=== PATIENT | female | born 1965 | race Caucasian/White ===

== ENCOUNTER 2016-11-25 12:25 | Emergency (ER) | payer OTHER ==
[~2016-11-25] VITALS: Ht 167.6 cm; Wt 55.0 kg
[~2016-11-25 12:25] MED LIST: AMLO5TAB2 PO; HYDR-3533 PO; LOPE2CAP PO; ZOFR4TAB3 SL
[2016-11-25 12:27] VITALS: BP 135/87; PULSE 98; RESP 20; TEMP 98.4; O2SAT 93
[2016-11-25] MEDS ORDERED: PRIL20CA9 PO (13:14)
[2016-11-25] MEDS ORDERED: LORA-392 PO (13:14)
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
[2016-11-25] MEDS ORDERED: CYCL1TAB29 PO (15:52)
[2016-11-25] MEDS ORDERED: NAPR500 PO (15:52)
== END 2016-11-25 20:35 | disposition home or self-care (01) ==
LOC: NEPB 12:25
DX: S16.1XXA Strain of muscle, fascia and tendon at neck level, initial encounter (principal); M79.622 Pain in left upper arm; I10 Essential (primary) hypertension; V43.62XA Car passenger injured in collision with other type car in traffic accident, initial encounter
CPT/HCPCS: 72050; 73060; 99284

== ENCOUNTER 2016-11-25 23:40 | Emergency (ER) | payer OTHER ==
[~2016-11-25] VITALS: Ht 167.6 cm; Wt 65.0 kg
[~2016-11-25 23:40] MED LIST changes: +CYCL1TAB29 PO; +LORA-392 PO; +NAPR500 PO; +PRIL20CA9 PO
[2016-11-25 23:42] VITALS: BP 212/104; PULSE 120; TEMP 97.5; O2SAT 98
[2016-11-26] MEDS ORDERED: oxyCODONE/ACETAMINOPHEN 5 MG/325 MG TAB PO ONE
[2016-11-26] MEDS ORDERED: DIAZEPAM 5 MG TAB PO ONE
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
== END 2016-11-26 00:25 | disposition left against medical advice (07) ==
LOC: NEPE 23:40
DX: S13.4XXA Sprain of ligaments of cervical spine, initial encounter (principal); I10 Essential (primary) hypertension; W19.XXXA Unspecified fall, initial encounter
CPT/HCPCS: 99283

== ENCOUNTER 2017-11-07 05:30 | Emergency (ER) | payer SELFPAY ==
[~2017-11-07] VITALS: Ht 167.6 cm; Wt 65.0 kg
[~2017-11-07 05:30] MED LIST changes: +CYCL10TA PO; -CYCL1TAB29 PO; -HYDR-3533 PO; -LOPE2CAP PO; -ZOFR4TAB3 SL
[2017-11-07 05:33] VITALS: BP 197/107; PULSE 108; RESP 18; TEMP 98.5; O2SAT 95
[2017-11-07] MEDS ORDERED: PRIL20TA2 (05:51)
[2017-11-07 06:14] VITALS: O2SAT 100
[2017-11-07 06:33] LABS: AUTOMATED NEUTROPHIL # 4.8 TH/MM3 (1.8-7.7); BASOPHIL # 0.1 TH/MM3 (0-0.2); BASOPHIL % 0.7 % (0.0-2.0); EOSINOPHIL # 0.4 TH/MM3 (0-0.4); EOSINOPHIL % 3.8 % (0.0-4.0); HEMATOCRIT 45.1 % (35.0-46.0); HEMOGLOBIN 15.6 GM/DL (11.6-15.3); LYMPH % 36.9 % (9.0-44.0); LYMPHOCYTE # 3.5 TH/MM3 (1.0-4.8); MEAN CELL VOLUME 101.7 FL (80.0-100.0); MEAN CORPUSCULAR HEMOGLOBIN 35.3 PG (27.0-34.0); MEAN CORPUSCULAR HGB CONC 34.7 % (32.0-36.0); MEAN PLATELET VOLUME 9.4 FL (7.0-11.0); MONOCYTE # 0.7 TH/MM3 (0-0.9); NEUT % 51.6 % (16.0-70.0); PLATELET COUNT 202 TH/MM3 (150-450); RED BLOOD COUNT 4.43 MIL/MM3 (4.00-5.30); RED CELL DISTRIBUTION WIDTH 13.7 % (11.6-17.2); WHITE BLOOD COUNT 9.4 TH/MM3 (4.0-11.0)
[2017-11-07] MEDS ORDERED: MORPHINE SULFATE 8 MG/ML INJ IV PUSH ONE ×2 (06:45→08:45)
[2017-11-07] MEDS ORDERED: SODIUM CHLOR 0.9% 1000 ML INJ 1,000 ML IV SCH (06:45)
[2017-11-07] MEDS ORDERED: DICYCLOMINE HCL 20 MG/2 ML VIAL IM ONE (06:45)
[2017-11-07] MEDS ORDERED: ONDANSETRON HCL 4 MG/2 ML VIAL IV PUSH ONE (06:45)
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
[2017-11-07 06:56] LABS: ALBUMIN 4.2 GM/DL (3.4-5.0); ALKALINE PHOSPHATASE 106 U/L (45-117); ALT (GPT) 112 U/L (10-53); AST (GOT) 162 U/L (15-37); BICARBONATE 21.2 MEQ/L (21.0-32.0); BLOOD UREA NITROGEN 10 MG/DL (7-18); CHLORIDE 105 MEQ/L (98-107); CREATININE 0.54 MG/DL (0.50-1.00); GLOMERULAR FILTRATION RATE 118 ML/MIN (>89); GLUCOSE,RANDOM 108 MG/DL (74-106); LIPASE 156 U/L (73-393); SODIUM (NA) 137 MEQ/L (136-145); TOTAL BILIRUBIN ADULT 0.4 MG/DL (0.2-1.0); TOTAL PROTEIN 8.3 GM/DL (6.4-8.2)
[2017-11-07] MEDS ORDERED: MORPHINE SULFATE 4 MG/ML INJ IV PUSH ONE (08:15)
[2017-11-07] MEDS ORDERED: ACETAMINOPHEN 500 MG CPLT PO ONE (08:15)
[2017-11-07] MEDS ORDERED: LORazepam 2 MG/ML VIAL IV PUSH ONE (08:15)
[2017-11-07 08:27] LABS: BILIRUBIN, URINE NEG (NEG); BLOOD, URINE NEG (NEG); GLUCOSE,URINE NEG (NEG); KETONE, URINE TRACE mg/dL (NEG); NITRITE,URINE NEG (NEG); PH, URINE 5.5 (5.0-8.5); URINE COLOR YELLOW (YELLW/STRAW); URINE LEUKOCYTE ESTERASE SMALL (NEG)
[2017-11-07 08:36] LABS: BACTERIA, URINE RARE /hpf; MUCUS URINE FEW /lpf (OCC); RBC, URINE 0-3 /hpf (0-3); SQUAMOUS EPITHELIAL CELL URINE > 8 /hpf (0-5)
[2017-11-07 08:40] VITALS: PULSE 76; RESP 18; O2SAT 97
[2017-11-07] MEDS ORDERED: IOHEXOL 350 MG/ML 10 ML VIAL (for RAD DIAG) IVCONTRAST ONE (08:56)
--- NOTE | 2017-11-07 09:19 | RADRPT ---
EXAM DATE/TIME: 11/07/2017 08:46 [facility] COMPARISON: CT ABDOMEN & PELVIS W CONTRAST, November 13, 2016, 14:01. INDICATIONS : Generalized abdominal pain. IV CONTRAST: 94 cc Omnipaque 350 (iohexol) IV ORAL CONTRAST: No oral contrast ingested. RADIATION DOSE: 5.01 CTDIvol (mGy) MEDICAL HISTORY : Hypertension. Cervical cancer SURGICAL HISTORY : Appendectomy. Cholecystectomy.Hysterectomy. ENCOUNTER: Initial ACUITY: 4 - 6 days PAIN SCALE: 5/10 LOCATION: Bilateral abdomen TECHNIQUE: Volumetric scanning of the abdomen and pelvis was performed. Using automated exposure control and ad justment of the mA and/or kV according to patient size, radiation dose was kept as low as reasonably achievable to obtain optimal diagnostic quality images. DICOM format image data is available electro nically for review and comparison. FINDINGS: The lung base is are clear. Mild fatty replacement is present in the liver. Surgical clips gallbladder fossa Spleen and pancreas unremarkable Adrenal glands appear normal Symmetric renal function renal stones No ascites or adenopathy There are no inflammatory changes in the abdomen Pelvic contents unremarkable Bowel gas pattern is unremarkable. I do not see air-fluid levels, dilatation or evidence for colitis . Surgical clip is present in region the appendix. Review of bone windows reveals mild degenerative changes in the lumbar spine. CONCLUSION: 1. Negative for acute process 2. I do not see an etiology for patient's abdominal pain. Bennie Bryant MD FACR on November 07, 2017 at 9:11 Board Certified Radiologist. This report was verified electronically.
[2017-11-07 10:21] VITALS: BP 115/52; PULSE 74; RESP 16; O2SAT 93
[2017-11-07] MEDS ORDERED: DICY10 PO (10:21)
[2017-11-07] MEDS ORDERED: ZOFR4TAB3 SL (10:21)
--- NOTE | 2017-11-07 10:21 | PD ---
Data Data Last Documented VS Vital Signs Date Time Temp Pulse Resp B/P (MAP) Pulse Ox O2 Delivery O2 Flow Rate FiO2 11/07/17 08:40 76 18 97 11/07/17 06:14 Room Air 11/07/17 05:33 98.5 Orders Orders Complete Blood Count With Diff (11/07/17 05:59) Comprehensive Metabolic Panel (11/07/17 05:59) Urinalysis - C+S If Indicated (11/07/17 05:59) Iv Access Insert/Monitor (11/07/17 05:59) Oxygen Administration (11/07/17 05:59) Oximetry (11/07/17 05:59) Lipase (11/07/17 05:59) Morphine Inj (Morphine Inj) (11/07/17 06:45) Ondansetron Inj (Zofran Inj) (11/07/17 06:45) Sodium Chlor 0.9% 1000 Ml Inj (Ns 1000 M (11/07/17 06:45) Dicyclomine Inj (Bentyl Inj) (11/07/17 06:45) Acetaminophen (Tylenol) (11/07/17 08:15) Morphine Inj (Morphine Inj) (11/07/17 08:15) Lorazepam Inj (Ativan Inj) (11/07/17 08:15) Ct Abd/Pel W Iv Contrast(Rout) (11/07/17 ) Morphine Inj (Morphine Inj) (11/07/17 08:45) Urine Culture (11/07/17 07:52) Iohexol 350 Inj (Omnipaque 350 Inj) (11/07/17 08:56) Labs Laboratory Tests Test 11/07/17 06:00 11/07/17 07:52 White Blood Count 9.4 TH/MM3 Red Blood Count 4.43 MIL/MM3 Hemoglobin 15.6 GM/DL Hematocrit 45.1 % Mean Corpuscular Volume 101.7 FL Mean Corpuscular Hemoglobin 35.3 PG Mean Corpuscular Hemoglobin Concent 34.7 % Red Cell Distribution Width 13.7 % Platelet Count 202 TH/MM3 Mean Platelet Volume 9.4 FL Neutrophils (%) (Auto) 51.6 % Lymphocytes (%) (Auto) 36.9 % Monocytes (%) (Auto) 7.0 % Eosinophils (%) (Auto) 3.8 % Basophils (%) (Auto) 0.7 % Neutrophils # (Auto) 4.8 TH/MM3 Lymphocytes # (Auto) 3.5 TH/MM3 Monocytes # (Auto) 0.7 TH/MM3 Eosinophils # (Auto) 0.4 TH/MM3 Basophils # (Auto) 0.1 TH/MM3 CBC Comment DIFF FINAL Differential Comment Blood Urea Nitrogen 10 MG/DL Creatinine 0.54 MG/DL Random Glucose 108 MG/DL Total Protein 8.3 GM/DL Albumin 4.2 GM/DL Calcium Level 9.0 MG/DL Alkaline Phosphatase 106 U/L Aspartate Amino Transf (AST/SGOT) 162 U/L Alanine Aminotransferase (ALT/SGPT) 112 U/L Total Bilirubin 0.4 MG/DL Sodium Level 137 MEQ/L Potassium Level 3.7 MEQ/L Chloride Level 105 MEQ/L Carbon Dioxide Level 21.2 MEQ/L Anion Gap 11 MEQ/L Estimat Glomerular Filtration Rate 118 ML/MIN Lipase 156 U/L Urine Color YELLOW Urine Turbidity CLEAR Urine pH 5.5 Urine Specific [place] 1.016 Urine Protein NEG mg/dL Urine Glucose (UA) NEG mg/dL Urine Ketones TRACE mg/dL Urine Occult Blood NEG Urine Nitrite NEG Urine Bilirubin NEG Urine Urobilinogen LESS THAN 2.0 MG/DL Urine Leukocyte Esterase SMALL Urine RBC 0-3 /hpf Urine WBC 6-8 /hpf Urine Squamous Epithelial Cells > 8 /hpf Urine Bacteria RARE /hpf Urine Mucus FEW /lpf Microscopic Urinalysis Comment CULTURE INDICATED MDM Supervised Visit with NICOLE: No Narrative Course I took over care of this patient from Dr. Salinas. She reports that over the past several days she's had 2 nails which have been greasy and she developed abdominal pain, vomiting and some loose stools. Labs are reassuring with the exception of some transaminitis and neck are sided ptosis which is likely secondary to chronic alcohol abuse. I discussed this with the patient and counseled her to stop drinking. CT abdomen and pelvis is reassuring. Patient was given pain control and antiemetics and she feels much better. I suspect she has gastroenteritis. Patient will be discharged home. Diagnosis Primary Impression: Nausea vomiting and diarrhea Patient Instructions: General Instructions Additional Instruction: If you develop lightheadedness, dizziness, persistent vomiting, inability to eat , or severe abdominal pain return to the emergency department. Followup with your primary care physician in 2-3 days if your symptoms have not resolved. Wash your hands agressively after using the restroom as to not spread your illness to others. Do not return to work until your symptoms have resolved. Take Zofran as needed for nausea. Med/Other Pt SpecificInfo: Prescription(s) given Scripts Dicyclomine (Bentyl) 10 Mg Cap 10 MG PO QID Y for CRAMPS, #15 CAP 0 Refills Prov: Geno Crowe MD 11/07/17 Ondansetron Odt (Zofran Odt) 4 Mg Tab 4 MG SL Q6HR Y for Nausea/Vomiting, #15 TAB 0 Refills Prov: Geno Crowe MD 11/07/17 Disposition: 01 DISCHARGE HOME Condition: Stable Geon Crowe MD Nov 07, 2017 10:21
== END 2017-11-07 11:00 | disposition home or self-care (01) ==
LOC: NEPC 05:30
DX: R11.2 Nausea with vomiting, unspecified (principal); R19.7 Diarrhea, unspecified; R82.90 Unspecified abnormal findings in urine; I10 Essential (primary) hypertension; Z72.0 Tobacco use; Z72.89 Other problems related to lifestyle
CPT/HCPCS: 74177; 80053; 81001; 83690; 85025; 87086; 96374; 96375; 96376; 99285; J0500; J2060; J2270; J2405; J7030; Q9967

== ENCOUNTER 2017-12-07 23:59 | Emergency (ER) | payer SELFPAY ==
[~2017-12-07] VITALS: Ht 167.6 cm; Wt 59.1 kg
[~2017-12-07 23:59] MED LIST changes: -CYCL10TA PO; +DICY10 PO; -PRIL20CA9 PO; +PRIL20TA2; +ZOFR4TAB3 SL
[2017-12-08] VITALS: BP 205/105; PULSE 105; RESP 18; TEMP 97.9; O2SAT 95
[2017-12-08 00:59] VITALS: BP 196/92; PULSE 94; RESP 20; TEMP 97.7; O2SAT 94
[2017-12-08] MEDS ORDERED: SODIUM CHLOR 0.9% 1000 ML INJ 1,000 ML IV ONE (01:15)
[2017-12-08] MEDS ORDERED: KETOROLAC TROMETHAMINE 30 MG/ML (IVP) VIAL IV PUSH ONE (01:15)
[2017-12-08 01:44] LABS: BASOPHIL % 0.3 % (0.0-2.0); EOSINOPHIL # 0.5 TH/MM3 (0-0.4); HEMOGLOBIN 15.1 GM/DL (11.6-15.3); LYMPH % 37.3 % (9.0-44.0); LYMPHOCYTE # 3.6 TH/MM3 (1.0-4.8); MEAN CELL VOLUME 101.1 FL (80.0-100.0); MEAN CORPUSCULAR HEMOGLOBIN 34.6 PG (27.0-34.0); MEAN CORPUSCULAR HGB CONC 34.2 % (32.0-36.0); MEAN PLATELET VOLUME 9.4 FL (7.0-11.0); MONO % 5.6 % (0.0-8.0); MONOCYTE # 0.5 TH/MM3 (0-0.9); NEUT % 51.8 % (16.0-70.0); PLATELET COUNT 246 TH/MM3 (150-450); RED BLOOD COUNT 4.35 MIL/MM3 (4.00-5.30); RED CELL DISTRIBUTION WIDTH 13.8 % (11.6-17.2); WHITE BLOOD COUNT 9.6 TH/MM3 (4.0-11.0)
--- NOTE | 2017-12-08 01:51 | RADRPT ---
EXAM DATE/TIME: 12/08/2017 01:18 [facility] COMPARISON: CHEST SINGLE AP, February 21, 2016, 3:35. INDICATIONS : Cough and cold symptoms x 3 weeks. MEDICAL HISTORY : Gastroesophageal reflux disease. Hypertension SURGICAL HISTORY : Appendectomy. Cholecystectomy. Hysterectomy. Bilateral shoulder surgery ENCOUNTER: Initial ACUITY: 3 weeks PAIN SCORE: 8/10 LOCATION: Bilateral chest FINDINGS: No new focal pleural pleural or parenchymal opacities. Cardiomediastinal contours are within normal l imits. Redemonstration bilateral humeral fixation hardware. Osseous structures are intact. CONCLUSION: 1. No acute abnormality or significant interval change. Pepe Blount MD on December 08, 2017 at 1:48 Board Certified Radiologist. This report was verified electronically.
[2017-12-08 02:18] VITALS: BP 92/51; PULSE 78; RESP 18; O2SAT 95
[2017-12-08 02:20] LABS: ALT (GPT) 89 U/L (10-53)
[2017-12-08 02:21] LABS: ALKALINE PHOSPHATASE 107 U/L (45-117); TOTAL BILIRUBIN ADULT 0.4 MG/DL (0.2-1.0); TOTAL PROTEIN 8.6 GM/DL (6.4-8.2)
[2017-12-08 02:22] LABS: ALBUMIN 4.1 GM/DL (3.4-5.0); AST (GOT) 136 U/L (15-37); BLOOD UREA NITROGEN 8 MG/DL (7-18); CALCIUM 9.5 MG/DL (8.5-10.1); CHLORIDE 101 MEQ/L (98-107); CREATININE 0.48 MG/DL (0.50-1.00); GLOMERULAR FILTRATION RATE 135 ML/MIN (>89); GLUCOSE,RANDOM 109 MG/DL (74-106); SODIUM (NA) 140 MEQ/L (136-145)
[2017-12-08 03:21] VITALS: BP 98/51; PULSE 77; RESP 18; O2SAT 95
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
[2017-12-08] MEDS ORDERED: GUAISYP4 PO (04:49)
[2017-12-08] MEDS ORDERED: IBUP-232 PO (04:49)
[2017-12-08] MEDS ORDERED: AZIT250T3 PO (04:49)
== END 2017-12-08 05:00 | disposition home or self-care (01) ==
LOC: NEPC 23:59
DX: B34.9 Viral infection, unspecified (principal); B97.89 Other viral agents as the cause of diseases classified elsewhere; I10 Essential (primary) hypertension; K21.9 Gastro-esophageal reflux disease without esophagitis; F32.9 Major depressive disorder, single episode, unspecified; F41.0 Panic disorder [episodic paroxysmal anxiety]; F17.210 Nicotine dependence, cigarettes, uncomplicated; Z85.41 Personal history of malignant neoplasm of cervix uteri; Z88.5 Allergy status to narcotic agent; Z79.899 Other long term (current) drug therapy
CPT/HCPCS: 71046; 80053; 85025; 87081; 87804; 87880; 96374; 99284; J1885; J7030

== ENCOUNTER 2017-12-14 01:21 | Emergency (ER) | payer SELFPAY ==
[~2017-12-14] VITALS: Ht 162.6 cm; Wt 65.0 kg
[~2017-12-14 01:21] MED LIST changes: +AZIT250T3 PO; +GUAISYP4 PO; +IBUP-232 PO
[2017-12-14 01:25] VITALS: BP 185/85; PULSE 120; RESP 14; TEMP 97.8; O2SAT 96
[2017-12-14] MEDS ORDERED: RESP: LIDOCAINE HCL 4% PF 5 ML NEB NEB ONE (01:45)
[2017-12-14] MEDS ORDERED: RESP: ALBUTEROL 2.5 MG/IPRATROPIUM 0.5 MG NEB (SCH) NEB ONE (01:45)
[2017-12-14] MEDS ORDERED: LIDOCAINE HCL 2% 20 ML VIAL INFIL ONE (02:00)
[2017-12-14] MEDS ORDERED: predniSONE 20 MG TAB PO ONE (02:30)
--- NOTE | 2017-12-14 02:41 | RADRPT ---
EXAM DATE/TIME: 12/14/2017 02:13 [facility] COMPARISON: CHEST SINGLE AP, February 21, 2016, 3:35. INDICATIONS : Patient complains of cough, congestion, and left sided chest pain. MEDICAL HISTORY : Gastroesophageal reflux disease. Hypertension. SURGICAL HISTORY : Appendectomy. Cholecystectomy. Hysterectomy. Bilateral shoulder surgery ENCOUNTER: Initial ACUITY: 1 month PAIN SCORE: 10/10 LOCATION: Left chest FINDINGS: A single view of the chest demonstrates the lungs to be symmetrically aerated without evidence of mas s, infiltrate or effusion. The cardiomediastinal contours are unremarkable. Osseous structures are intact. Surgical clips are seen in the humeri bilaterally. CONCLUSION: No acute disease. Clovis Armijo MD on December 14, 2017 at 2:38 Board Certified Radiologist. This report was verified electronically.
[2017-12-14 03:35] VITALS: BP 127/67; PULSE 88; RESP 20; O2SAT 96
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
[2017-12-14] MEDS ORDERED: ALBUTEROL SULFATE 90 MCG/ACT HFA 8 GM INHALER INH ONE (04:30)
[2017-12-14] MEDS ORDERED: GUAISYP4 PO (04:36)
== END 2017-12-14 04:30 | disposition home or self-care (01) ==
LOC: NEPE 01:21
DX: J40 Bronchitis, not specified as acute or chronic (principal); F32.9 Major depressive disorder, single episode, unspecified; I10 Essential (primary) hypertension; K21.9 Gastro-esophageal reflux disease without esophagitis; F41.0 Panic disorder [episodic paroxysmal anxiety]; F17.210 Nicotine dependence, cigarettes, uncomplicated; Z79.899 Other long term (current) drug therapy; Z88.5 Allergy status to narcotic agent; Z88.8 Allergy status to other drugs, medicaments and biological substances
CPT/HCPCS: 71045; 94640; 94664; 99283; J7512

== ENCOUNTER 2018-02-10 14:48 | Emergency (ER) | payer SELFPAY ==
[~2018-02-10] VITALS: Ht 167.6 cm; Wt 60.0 kg
[2018-02-10] MEDS ORDERED: IOHEXOL 350 MG/ML 10 ML VIAL (for RAD DIAG) IVCONTRAST ONE (14:49)
[2018-02-10 14:51] VITALS: BP 146/95; PULSE 102; RESP 18; TEMP 99.7; O2SAT 99
[2018-02-10 16:43] VITALS: BP 157/95; PULSE 103; RESP 18; O2SAT 96
[2018-02-10] MEDS ORDERED: SODIUM CHLOR 0.9% 1000 ML INJ 1,000 ML IV SCH (16:46)
[2018-02-10] MEDS ORDERED: DICYCLOMINE HCL 20 MG/2 ML VIAL IM ONE (17:00)
[2018-02-10] MEDS ORDERED: SODIUM CHLORIDE 0.9% FLUSH 10 ML FLUSH IV FLUSH PRN (17:00)
[2018-02-10] MEDS ORDERED: ONDANSETRON HCL 4 MG/2 ML VIAL IVP ONE (17:00)
[2018-02-10 17:05] VITALS: O2SAT 97
[2018-02-10 17:08] VITALS: BP 152/91; PULSE 89; RESP 16; O2SAT 97
[2018-02-10 17:13] LABS: AUTOMATED NEUTROPHIL # 12.7 TH/MM3 (1.8-7.7); BASOPHIL % 0.2 % (0.0-2.0); EOSINOPHIL % 0.1 % (0.0-4.0); HEMATOCRIT 45.5 % (35.0-46.0); HEMOGLOBIN 16.2 GM/DL (11.6-15.3); LYMPHOCYTE # 0.4 TH/MM3 (1.0-4.8); MEAN CELL VOLUME 100.9 FL (80.0-100.0); MEAN CORPUSCULAR HGB CONC 35.6 % (32.0-36.0); MEAN PLATELET VOLUME 9.7 FL (7.0-11.0); MONO % 4.7 % (0.0-8.0); MONOCYTE # 0.7 TH/MM3 (0-0.9); PLATELET COUNT 164 TH/MM3 (150-450); RED BLOOD COUNT 4.51 MIL/MM3 (4.00-5.30); RED CELL DISTRIBUTION WIDTH 14.6 % (11.6-17.2); WHITE BLOOD COUNT 13.8 TH/MM3 (4.0-11.0)
[2018-02-10 17:32] LABS: AST (GOT) 71 U/L (15-37); BICARBONATE 24.4 MEQ/L (21.0-32.0); BLOOD UREA NITROGEN 8 MG/DL (7-18); CALCIUM 9.2 MG/DL (8.5-10.1); CHLORIDE 101 MEQ/L (98-107); CREATININE 0.72 MG/DL (0.50-1.00); GLOMERULAR FILTRATION RATE 84 ML/MIN (>89); GLUCOSE,RANDOM 107 MG/DL (74-106); SODIUM (NA) 139 MEQ/L (136-145)
[2018-02-10 17:35] LABS: ALKALINE PHOSPHATASE 91 U/L (45-117); ALT (GPT) 68 U/L (10-53)
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
--- NOTE | 2018-02-10 19:19 | PD ---
Data Data Last Documented VS Vital Signs Date Time Temp Pulse Resp B/P (MAP) Pulse Ox O2 Delivery O2 Flow Rate FiO2 02/10/18 20:39 91 20 110/53 (72) 95 Room Air 02/10/18 14:51 99.7 Orders Orders Complete Blood Count With Diff (02/10/18 16:46) Comprehensive Metabolic Panel (02/10/18 16:46) Lipase (02/10/18 16:46) Urinalysis - C+S If Indicated (02/10/18 16:46) Iv Access Insert/Monitor (02/10/18 16:46) Ecg Monitoring (02/10/18 16:46) Oximetry (02/10/18 16:46) Ondansetron Inj (Zofran Inj) (02/10/18 17:00) Sodium Chlor 0.9% 1000 Ml Inj (Ns 1000 M (02/10/18 16:46) Sodium Chloride 0.9% Flush (Ns Flush) (02/10/18 17:00) Dicyclomine Inj (Bentyl Inj) (02/10/18 17:00) Ct Abd/Pel W Iv Contrast(Rout) (02/10/18 ) Iohexol 350 Inj (Omnipaque 350 Inj) (02/10/18 14:49) Enteric Path (Stool) (02/10/18 19:26) C Diff Toxin Pcr (02/10/18 19:26) Stool Wbc (Leukocytes) (02/10/18 19:26) Sodium Chlor 0.9% 1000 Ml Inj (Ns 1000 M (02/10/18 19:30) Ondansetron Inj (Zofran Inj) (02/10/18 19:30) Morphine Inj (Morphine Inj) (02/10/18 20:30) Prochlorperazine Inj (Compazine Inj) (02/10/18 20:30) Oral Rehydration (02/10/18 21:02) Labs Laboratory Tests Test 02/10/18 16:55 02/10/18 19:36 02/10/18 19:45 White Blood Count 13.8 TH/MM3 Red Blood Count 4.51 MIL/MM3 Hemoglobin 16.2 GM/DL Hematocrit 45.5 % Mean Corpuscular Volume 100.9 FL Mean Corpuscular Hemoglobin 36.0 PG Mean Corpuscular Hemoglobin Concent 35.6 % Red Cell Distribution Width 14.6 % Platelet Count 164 TH/MM3 Mean Platelet Volume 9.7 FL Neutrophils (%) (Auto) 92.0 % Lymphocytes (%) (Auto) 3.0 % Monocytes (%) (Auto) 4.7 % Eosinophils (%) (Auto) 0.1 % Basophils (%) (Auto) 0.2 % Neutrophils # (Auto) 12.7 TH/MM3 Lymphocytes # (Auto) 0.4 TH/MM3 Monocytes # (Auto) 0.7 TH/MM3 Eosinophils # (Auto) 0.0 TH/MM3 Basophils # (Auto) 0.0 TH/MM3 CBC Comment DIFF FINAL Differential Comment Blood Urea Nitrogen 8 MG/DL Creatinine 0.72 MG/DL Random Glucose 107 MG/DL Total Protein 8.0 GM/DL Albumin 4.0 GM/DL Calcium Level 9.2 MG/DL Alkaline Phosphatase 91 U/L Aspartate Amino Transf (AST/SGOT) 71 U/L Alanine Aminotransferase (ALT/SGPT) 68 U/L Total Bilirubin 1.0 MG/DL Sodium Level 139 MEQ/L Potassium Level 3.6 MEQ/L Chloride Level 101 MEQ/L Carbon Dioxide Level 24.4 MEQ/L Anion Gap 14 MEQ/L Estimat Glomerular Filtration Rate 84 ML/MIN Lipase 87 U/L Urine Color YELLOW Urine Turbidity CLEAR Urine pH 8.0 Urine Specific [place] 1.018 Urine Protein TRACE mg/dL Urine Glucose (UA) NEG mg/dL Urine Ketones TRACE mg/dL Urine Occult Blood NEG Urine Nitrite NEG Urine Bilirubin NEG Urine Urobilinogen LESS THAN 2.0 MG/DL Urine Leukocyte Esterase NEG Urine WBC LESS THAN 1 /hpf Urine Squamous Epithelial Cells <1 /hpf Urine Mucus FEW /lpf Microscopic Urinalysis Comment CULT NOT INDICATED MDM Medical Record Reviewed: Yes Supervised Visit with NICOLE: No Narrative Course During the course of the patient's emergency department visit, the patient's history, examination, and differential diagnosis were reviewed with the patient. The patient was placed on a accessories repairer with oximetry and frequent blood pressure monitoring. The patient had IV access obtained and blood work sent for analysis. The patient's case was checked out to me by Dr. Varghese. Please see his complete history and physical. The patient's case was checked out to me at the conclusion of his shift. The patient presented with a history of nausea, vomiting, diarrhea that began at 9 AM this morning. She reports that she has had diarrhea too many times to count. She reports that the stool is brown and watery. She reports that she has had nausea and vomiting 10-12 times. She reports that now she is just dry heaving. She reports that she has an associated abdominal pain that is sharp and cramping in character. She reports that it starts in the left side and radiates to the right lower quadrant of the abdomen. She denies having any sick contacts. She reports that she was last on antibiotics 3 months ago related to a diagnosis of bronchitis. She denies having any blood in her stool or noted mucus in her stool. The patient was initially provided normal saline 1 L IV fluid bolus, Bentyl 20 mg IM, Zofran 4 mg IV. This was provided prior to my arrival. The patient continues to report having a headache, nausea, and feels that she will move her bowels again. The patient will have stool studies ordered. Normal saline 1 L IV fluid bolus was administered again, Zofran [address] scan of the abdomen and pelvis is pending for this patient. The patient was able to provide a urine sample which will be sent for analysis per The patient's laboratory studies were reviewed and remarkable for a white count of 13.8, hemoglobin 16.2, platelets 164 with 92 neutrophils, lymphocytes 3, CMP is remarkable for a glucose of 107, AST 71, ALT 68. Radiology studies were reviewed and remarkable for CT scan of the abdomen and pelvis shows nonspecific gastric and scattered small bowel wall thickening, scattered diverticuli in the colon without diverticulitis, scattered radiopaque material throughout the colon nonspecific. There is no free fluid. The patient provided a stool sample. The patient was feeling improved and started on oral rehydration therapy. Urinalysis showed trace ketones otherwise unremarkable. The patient is suspected to have gastroenteritis. The patient was instructed to push fluids and get plenty of rest. The patient was given a prescription for nausea medication. She was instructed to push fluids with an electrolyte rich solution such as Pedialyte or Gatorade. Diagnosis Primary Impression: Nausea, vomiting, and diarrhea Referrals: Primary Care Physician 2 days Patient Instructions: Acute Diarrhea (ED), Acute Nausea and Vomiting (ED), General Instructions Additional Instruction: The patient was instructed to push fluids and get plenty of rest. The patient was given a prescription for nausea medication. She was instructed to push fluids with an electrolyte rich solution such as Pedialyte or Gatorade. Med/Other Pt SpecificInfo: Prescription(s) given Scripts Ondansetron Odt (Zofran Odt) 4 Mg Tab 4 MG SL Q6HR Y for Nausea/Vomiting, #7 TAB 0 Refills Prov: Antoinette Rucker MD 02/10/18 Disposition: 01 DISCHARGE HOME Condition: Stable Antoinette Rucker MD Feb 10, 2018 19:19
--- NOTE | 2018-02-10 19:27 | RADRPT ---
EXAM DATE/TIME: 02/10/2018 18:49 [facility] COMPARISON: CT ABDOMEN & PELVIS W CONTRAST, November 07, 2017, 8:46. INDICATIONS : Lower abdomen pain today. IV CONTRAST: 72 cc Omnipaque 350 (iohexol) IV ORAL CONTRAST: No oral contrast ingested. RADIATION DOSE: 6.64 CTDIvol (mGy) MEDICAL HISTORY : Gastroesophageal reflux disease. cervical cancer SURGICAL HISTORY : Hysterectomy. Appendectomy.Cholecystectomy. ENCOUNTER: Initial ACUITY: 1 day PAIN SCALE: 8/10 LOCATION: Bilateral lower quadrant TECHNIQUE: Volumetric scanning of the abdomen and pelvis was performed. Using automated exposure control and ad justment of the mA and/or kV according to patient size, radiation dose was kept as low as reasonably achievable to obtain optimal diagnostic quality images. DICOM format image data is available electro nically for review and comparison. FINDINGS: The lower lungs are clear. The liver, spleen and pancreas are unremarkable There is marked thickening of the gastric because the, nonspecific Adrenals and kidneys unremarkable There is no ascites or adenopathy The region of the cecum and terminal ileum unremarkable. There is minimal bowel wall thickening in scattered loops of small bowel obstruction. Stool is seen throughout the colon. Adnexal regions are unremarkable. CONCLUSION: Nonspecific gastric and scattered small bowel wall thickening. Scattered diverticula in the colon without diverticulitis Scattered radiopaque material throughout the colon nonspecific There is no free fluid. Bennie Bryant MD FACR on February 10, 2018 at 19:22 Board Certified Radiologist. This report was verified electronically.
[2018-02-10] MEDS ORDERED: ONDANSETRON HCL 4 MG/2 ML VIAL IV ONE (19:30)
[2018-02-10] MEDS ORDERED: SODIUM CHLOR 0.9% 1000 ML INJ 1,000 ML IV ONE (19:30)
[2018-02-10 19:56] LABS: BILIRUBIN, URINE NEG (NEG); BLOOD, URINE NEG (NEG); GLUCOSE,URINE NEG (NEG); KETONE, URINE TRACE mg/dL (NEG); MUCUS URINE FEW /lpf (OCC); NITRITE,URINE NEG (NEG); SQUAMOUS EPITHELIAL CELL URINE <1 /hpf (0-5); URINE COLOR YELLOW (YELLW/STRAW); URINE LEUKOCYTE ESTERASE NEG (NEG)
[2018-02-10] MEDS ORDERED: PROCHLORPERAZINE INJ 10 MG/2 ML VIAL IV PUSH ONE (20:30)
[2018-02-10] MEDS ORDERED: MORPHINE SULFATE 4 MG/ML INJ IV PUSH ONE (20:30)
[2018-02-10 20:39] VITALS: BP 110/53; PULSE 91; RESP 20; O2SAT 95
[2018-02-10] MEDS ORDERED: ZOFR4TAB3 SL (21:21)
[2018-02-10 22:37] VITALS: BP 141/83; PULSE 93; RESP 18; O2SAT 95
== END 2018-02-11 00:12 | disposition home or self-care (01) ==
LOC: NEPC 14:48
DX: R11.2 Nausea with vomiting, unspecified (principal); R19.7 Diarrhea, unspecified; F17.210 Nicotine dependence, cigarettes, uncomplicated; I10 Essential (primary) hypertension; K21.9 Gastro-esophageal reflux disease without esophagitis; F32.9 Major depressive disorder, single episode, unspecified; F41.0 Panic disorder [episodic paroxysmal anxiety]; Z79.899 Other long term (current) drug therapy; Z88.5 Allergy status to narcotic agent
CPT/HCPCS: 74177; 80053; 81001; 83690; 85025; 87205; 87493; 87506; 96361; 96372; 96374; 96375; 96376; 99284; J0500; J0780; J2270; J2405; J7030; Q9967